=== PATIENT | male | born 1975 | race Two or more races ===

== ENCOUNTER 2025-01-20 16:18 | Emergency (ER) | payer BC, SELFPAY ==
[2025-01-20 16:47] VITALS: BP 132/81; PULSE 108; RESP 18; TEMP 36.1; O2SAT 95; BMI 31.9
--- NOTE | 2025-01-20 16:49 | ED.GENADULT ---
HPI - General Adult General Chief complaint: Upper Respiratory Symptoms Stated complaint: sore throat, stuff coming out of eye Time Seen by Provider: 01/20/25 18:00 Source: patient Mode of arrival: ambulatory Limitations: no limitations History of Present Illness ED Provider: Dr. Mary Price HPI narrative: Patient comes to the emergency room complaining of 2-3 days of sore throat, productive cough, body aches, chills. However, what bothers most the patient today are his eyes. Patient states that his eyes have been erythematous, burning and in the morning he wakes up with very crusty eyes and throughout the day he has been using continuously compresses and wipes to clean his eyes. Related Data Previous Rx's ?Medication ?Instructions ?Recorded benzonatate 100 mg capsule 100 mg PO TID PRN cough #14 caps 01/20/25 erythromycin 5 mg/gram (0.5 %) eye 0.5 inch ophthalmic (eye) BID #3.5 01/20/25 ointment grams ibuprofen 600 mg tablet 600 mg PO TID PRN fever or pain 01/20/25 #30 tabs Allergies Allergy/AdvReac Type Severity Reaction Status Date / Time No Known Allergies Allergy Verified 01/20/25 16:48 Review of Systems Review of Systems: Constitutional : No Weight loss, complaining of chills, fatigue and generalized malaise ENT/Mouth : No Hearing loss, No Ear Pain, No Nasal Congestion, No Sinus Pain, No Hoarseness, No sore throat, No Rhinorrhea, No Swallowing Difficulty Eyes: No Eye Pain, No Swelling, bilateral erythema in the sclera, waking up with crusty sticky eyes Cardiovascular : No Chest Pain, No SOB, No Dyspnea on Exertion, No Orthopnea, No Edema, No Palpitations Respiratory : Complaining of productive cough No Wheezing, No Smoke Exposure, No Dyspnea Gastrointestinal : No Nausea, No Vomiting, No Diarrhea, No Constipation, No abdominal Pain, No Hematochezia, No Melena Genitourinary : no irregular bleeding, No Dysuria, No Urinary Frequency, No Hematuria, No Urinary Incontinence, No Urgency, No Flank Pain, No Urinary Flow Changes, No Hesitancy Musculoskeletal : No joint pain, No Myalgias, No Joint Swelling Skin : No Skin Lesions, No rash Neuro : No Weakness, No Numbness, No Paresthesias, No Loss of Consciousness, No Dizziness, No Headache Psych : No Anxiety/Panic, No Depression, No SI/HI/AH/VH, No Social Issues, Heme/Lymph: No Bruising, No Bleeding,No Lymphadenopathy Endocrine : No Polyuria, No Polydipsia, No Temperature Intolerance [facility] Social History Social History Advance Directives: No Advance Directives Information Provided: Yes Physical Exam ED Exam Exam: Appearance: Alert. Oriented X3. No acute distress. Eyes: Pupils equal, round and reactive to light. ENT: Pharynx normal. Injected conjunctiva, sclerae erythematous, crusty discharge in the edges of the eyes, sounds congested Neck: Normal inspection. Neck supple. No lymph nodes noted. No crepitus CVS: Normal heart rate and rhythm. Pulses normal. Normal S1 and S2 Respiratory: No respiratory distress. Breath sounds normal. No Wheezing. No rales Abdomen: Soft and nontender. No rigidity. No distention. Skin: Skin warm and dry. Normal skin color. Normal skin turgor. Extremities: No lower extremity edema. No Lacerations. No Rash Neuro: Oriented X 3. No motor deficit. No sensory deficit. Moving all extremities. No slurred speech. CN 2 through 12 grossly intact Psych: calm, cooperative, normal affect Vital Signs: Vital Signs - 24 hr 01/20/25 16:47 Temperature 96.9 F Pulse Rate 108 H Respiratory Rate 18 Blood Pressure 132/81 Pulse Oximetry 95 Oxygen Delivery Method Room Air BMI result Body Mass Index 31.9 Course Course Course Narrative: This is a Rapid Medical Examination (RME) performed by Jayden Santana PA-C in triage. Full HPI, ROS, assessment and treatment plan per primary provider in the Main ED. Hx: 49 yo M here for eval of sore throat, productive cough x2 days. Plan: viral/strep swabs Medical Decision Making Medical Decision Making [facility] Narrative: My interpretation of labs: Patient tested negative for COVID influenza and strep For patient's symptoms, he was given p.o. Decadron and Tessalon Perles. I discussed the above-mentioned with the patient, patient agrees with plan. Differential Diagnosis Differential Diagnoses: The differential diagnosis associated with the presentation includes (COVID, influenza, strep pharyngitis, viral pharyngitis, viral URI, bronchitis) Lab Data [facility] Lab Attestation statement: I reviewed the patient's lab results. Labs: Lab Results 01/20/25 Range/Units 16:57 COVID-19 (LE) Negative (Negative) COVID-19 Clin Com See Note Influenza Type A (BRENNAN) Negative (Negative) Influenza Type B (BRENNAN) Negative (Negative) Influenza A & B Note See Note S. pyogenes GrpA BRENNAN Negative (Negative) Discharge Plan Discharge Clinical Impression: Viral URI with cough, Conjunctivitis Patient Disposition: Home, Self-Care Instructions: Upper Respiratory Infection (ED), Conjunctivitis (ED) Additional Instructions: Please follow-up with your primary care physician tomorrow. If you have any worsening or new symptoms, please return to the emergency room or call 911 Prescriptions: New benzonatate 100 mg capsule 100 mg PO TID PRN (Reason: cough) Qty: 14 0RF erythromycin 5 mg/gram (0.5 %) ointment 0.5 inch ophthalmic (eye) BID Qty: 3.5 0RF ibuprofen 600 mg tablet 600 mg PO TID PRN (Reason: fever or pain) Qty: 30 0RF Print Language: Sinhala
[2025-01-20 17:18] LABS: IDNOW Serial# 6674DD1D; Strep A Nucleic Acid Negative (Negative)
[2025-01-20 17:27] LABS: COVID-19 Test Negative (Negative); IDNOW Serial# 152EDE1D; IDNOW Serial# 16C4AD1C; Influenza B2 Negative (Negative)
--- OUTSIDE RECORDS SUMMARY | 2025-01-20 18:28 | XMS_ITS | Clinical Summary ---
Author Organization [facility] Address [address] [place] [address] Care Team Providers Care Car Mover Name Role Phone Yovany Holly DO Primary Care Provider [phone] Yovany Holly DO Unavailable Medications atorvaSTATin (LIPITOR) 80 MG tablet Take by mouth. 12/05/2023 Active JARDIANCE 10 mg Tab tablet Take by mouth. 12/05/2023 Active naproxen sodium (ANAPROX) 550 MG tablet Take by mouth. 11/22/2023 Active traMADoL (ULTRAM) 50 mg tablet Take by mouth. 12/05/2023 Active Active Problems Problem Noted Date Diagnosed Date Internal derangement of knee 12/22/2023 Primary osteoarthritis of left knee 12/22/2023 Tear of medial meniscus of left knee, current Social History Tobacco Use Types Packs/Day Years Used Date Smoking Tobacco: Never Assessed Sex and Gender Information Value Date Recorded Sex Assigned at Male 11/08/2023 10:42 AM EDT Legal Sex Male 10:26 AM EDT Gender Identity Male 11/08/2023 10:42 AM EDT Sexual Orientation Not on file Plan of Treatment Health Maintenance Due Date Last Done Comments Blood Pressure 1977 Lipid Panel 1977 PSA 1977 Prostate Cancer Screening 1977 SDM 1977 Depression Screening 1981 Hepatitis C Screening 08/26/1995 DTaP,Tdap,and Td Vaccines (1 - Tdap) 1996 CT Colonography 2022 Colonoscopy 2022 Colorectal Cancer Screening 2022 FIT 2022 FOBT 2022 Multitarget Stool DNA (Cologuard) 2022 Sigmoidoscopy 2022 COVID-19 Vaccine ( - 2023-2 5 season) 2023 Influenza Vaccine (#1) 2024 Meningococcal B Vaccines Aged Out No longer eligible based on patient's age to complete this topic Meningococcal Vaccines Aged Out No lo nger eligible based on patient's age to complete this topic Pneumococcal Vaccine: Pediat rics (0 to 5 Years) and At-Risk Patients (6 to 64 Years) Aged Out No longer eligible b ased on patient's age to complete this topic Insurance Care Teams Car Mover Relationship Specialty Start Date End Date Yovany Holly DO [address] [place] [address] PCP - General Internal Medicine 11/08/23 Yovany Holly DO [address] [place] [address] PCP - Insurance Assigned PCP 11/08/23
--- OUTSIDE RECORDS SUMMARY | 2025-01-20 18:28 | XMS_ITS | Encounter Summary ---
Author Organization [facility] Address [address] [address] Phone Care Team Providers Care Grain Combiner Name Role Phone Meliton Adame MD Primary Care Provider [phone] Meliton Adame MD Unavailable [phone] Meliton Adame MD Unavailable [phone] Lu Montes De Oca MD Unavailable [phone] Sandra Wells CNP Primary Care Provider + Encounter Details Date Type Department Care Team (Late st Contact Info) Description 01/21/2022 Procedure Pass [facility]PT [address] [facility], [address]th [place] [address] Social History Tobacco Use Types Packs/Day Years Used Date Smoking Tobacco: Every Day Cigarettes 1 29.3 Started: 10/01/1995 Smokeless Tobacco: Never Alcohol Use Standard Drinks/Week Comments Not Currently 12 (1 standard drink = 0.6 oz pu re alcohol) once a week Sex and Gender Information Value Date Recorded Sex Assigned at Male 07/14/2021 6:33 AM EDT Legal Sex Male 7:47 PM EST Gender Identity Male 07/14/2021 6:33 AM EDT Sexual Orientation Straight 07/14/2021 6: 33 AM EDT documented as of this encounter Plan of Treatment Not on file documented as of this encounter Visit Diagnoses Not on filedocumented in this encounter Additional Health Concerns Assessment Noted Time PHQ-2 Depression Total Score: 0 09/22/19 12:48 PM EDT documented as of this encounter Care Teams Grain Combiner Relationship Specialty Start Date End Date Meliton Adame MD [address] [place] [address] [email or web address] PCP - General Internal Medicine 07/15/20 05/08/23 Lu Montes De Oca MD [address] [facility] [place] [address] [email or web address] PCP - Resident PCP Internal Medicine 01/27/23 05/08/23 Sandra Wells CNP [address] [address] [place] [address] [email or web address] PCP - General Nurse Practitioner 05/09/23 10/09/23 Meliton Adame MD [address] [place] [address] [email or web address] Insurance Assigned Provider 10/04/20 08/05/23 Meliton Adame MD [address] [place] [address] [email or web address] Attributed Provider 11/07/20 09/08/23 documented as of this encounter Additional Source Comments The information contained in this document represents components of the legal health record. It is not the complete legal health record.[facility]
--- OUTSIDE RECORDS SUMMARY | 2025-01-20 18:28 | XMS_ITS | Encounter Summary ---
Author Organization [facility] Address [address] [facility] [address] [place] [address] Phone Care Team Providers Care Retail Shift Manager Name Role Phone Meliton Adame MD Primary Care Provider Meliton Adame MD Unavailable [phone] Meliton Adame MD Unavailable [phone] Lu Montes De Oca MD Unavailable Sandra Wells MILLING OPERATOR Primary Care Provider + Encounter Details Date Type Department Care Team (Late st Contact Info) Description 06/29/2021 Procedure Pass MRI, [facility] [place] [address] [place] [address] Social History Tobacco Use Types Packs/Day Years [...] Noted Time PHQ-2 Depression Total Score: 0 09/30/19 1:36 PM EDT documented as of this encounter Care Teams Retail Shift Manager Relationship Specialty Start Date End Date Meliton Adame MD [address] [place] [address] [email or web address] PCP - General Internal Medicine 07/15/20 05/08/23 Lu Montes De Oca MD [address] [facility] [place] [address] [email or web address] PCP - Resident PCP Internal Medicine 01/27/23 05/08/23 Sandra Wells CNP [address] [address] [place] [address] [email or web address] PCP - General Nurse Practitioner 05/09/23 10/09/23 Meliton Adame MD [address] [place] [address] [email or web address] Insurance Assigned Provider 10/04/20 08/05/23 Meliton Adame MD [address] [place] [address] [email or web address] Attributed Provider 11/07/20 09/08/23 documented as of this encounter Additional Source Comments The information contained in this document represents components of the legal health record. It is not the complete legal health record.[facility]
--- OUTSIDE RECORDS SUMMARY | 2025-01-20 18:28 | XMS_ITS | Encounter Summary ---
Author Organization [facility] Address [address] [place] [address] Phone Care Team Providers Care Owner Professional Engineer Name Role Phone Meliton Adame MD Primary Care Provider Meliton Adame MD Unavailable [phone] Meliton Adame MD Unavailable [phone] Lu Montes De Oca MD Unavailable Sandra Wells CNP Primary Care Provider + Encounter Details Date Type Department Care Team (Latest Contact Info) Description 10/10/2020 Ancillary Orders [facility] [address], [address] [place] [address] Yfn Figueroa MBBS [address] [place] [id number] [email or web address] Chronic venous insufficiency Social History Tobacco Use Types Packs/Day Years [...] documented as of this encounter Visit Diagnoses Diagnosis Chronic venous insufficiency Unspecified venous (peripheral) insufficiency documented in this encounter Additional Health Concerns Assessment Noted Time PHQ-2 Depression Total Score: 0 09/30/19 1:36 PM EDT documented as of this encounter Care Teams Owner Professional Engineer Relationship Specialty Start Date End Date Meliton Adame MD [address] [place] [address] [email or web address] PCP - General Internal Medicine 07/15/20 05/08/23 Lu Montes De Oca MD [address] [facility] [place] [address] [email or web address] PCP - Resident PCP Internal Medicine 01/27/23 05/08/23 Sandra Wells CNP [address] [address] [place] [address] [email or web address] PCP - General Nurse Practitioner 05/09/23 10/09/23 Meliton Adame MD [address] [place] [address] [email or web address] Insurance Assigned Provider 10/04/20 08/05/23 Meliton Adame MD [address] [place] [address] [email or web address] Partners Attributed Provider 11/07/20 09/08/23 documented as of this encounter Additional Source Comments The information contained in this document represents components of the legal health record. It is not the complete legal health record.[facility]
--- OUTSIDE RECORDS SUMMARY | 2025-01-20 18:28 | XMS_ITS | Clinical Summary ---
Author Organization [facility] Address [address] [address] Phone Care Team Providers Care Maintenance Fitter Name Role Phone Unavailable Primary Care Provider Unavailabl e Allergies No known active allergies Medications terbinafine HCL (LAMISIL) 250 mg tablet Take 1 tablet (250 mg total) by mouth daily. 30 tablet 3 07/20/2022 Active atorvastatin (LIPITOR) 80 MG tabletIndication s:Coronary artery disease involving [place] heart without angina pectoris, unspecified vessel or lesion type Take 1 tablet (80 mg total) by mouth daily. 90 tablet 3 07/20/2022 Active aspirin 81 MG EC tablet Take 1 tablet (81 mg total) by mouth daily. 90 tablet 3 07/20/2022 Active sildenafiL (VIAGRA) 100 mg tablet TAKE 0.25 TABLETS (25 MG TOTAL) BY MOUTH DAILY NEEDED. 30 tablet 10/12/2022 Active naproxen (NAPROSYN) 250 MG tabletIndication s:Backache TAKE 1 TABLET (250 MG TOTAL) BY MOUTH 2 (TWO) TIMES A DAY WITH MEALS. 60 tablet 10/12/2022 Active cyclobenzaprine (FLEXERIL) 10 MG tablet TAKE 1 TABLET (10 MG TOTAL) BY MOUTH 3 (THREE) TIMES A DAY NEEDED. 45 tablet 10/12/2022 Active Active Problems Problem Noted Date Diagnosed Date Plantar fasciitis, right 07/20/2022 Assessment & Plan (07/21/2022 3:30 AM EDT): He has pain of the right heel worse in the morning when he steps sharp in quality. Appears to be consistent with plantar fasciitis. I provided him a handout with conservative management and exercises for plantar fasciitis Urinary urgency 09/24/2021 Assessment & Plan (07/21/2022 3:30 AM EDT): He has intermittent episodes of urinary urgency. No bleeding or dysuria. Seems overall stable. Continue to monitor. Assessment & Plan (09/25/2021 2:41 AM EDT): He notes increase your urgency during the day. No issues with incomplete voiding or incontinence. 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 He was seen by orthopedic surgery who prescribed him Medrol dosepack. This helped improve symptoms. He is unable to do Physical therapy because of his work schedule. He is interested in repeating a Medrol dosepack as well as weight loss. Referral to [facility]. Restart Medrol dose pack. Assessment & Plan (06/30/2021 10:15 AM EST): He has had intermittent chronic pain of the left side lower back since about 2014, this is steadily increased in both frequency and severity. Over the past three or four months, it is worse into the point where it's present consistently. Pain is located in the left-sided upper lumbar paraspinal muscles and radiates down to behind the left thigh down to the knee. No radiation down to the feet, bilaterally. There is no saddle anesthesia and no urinary incontinence symptoms. On exam, has some tenders to palpation as well as spasm of the left paraspinal muscles. Obtain Xray of lumbar spine today. Will also order MRI of lumbar spine, given his symptoms. Refer to physical therapy, physical medicine, and rehabilitation for further evaluation. He will also use ibuprofen 800 mg as needed for pain management. Assessment & Plan (02/04/2021 6:31 AM EDT): He uses ibuprofen with mild to moderate efficacy. Trial of Flexeril 5 mg at night as needed for pain. Coronary artery disease invo lving [place] heart without angina pectoris 09/30/2020 Assessment & Plan (07/21/2022 3:29 AM EDT): He's on atorvastatin 80 mg and aspirin and tolerating this well. Continue current regimen. Refills provided for atorvastatin (LIPITOR) 80 MG tablet Dispense: 90 tablet; Refill: 3 Assessment & Plan (09/25/2021 2:40 AM EDT): Continue atorvastatin (LIPITOR) 80 mg tablet Ordered Hemoglobin A1c and CBC and differential Assessment & Plan (02/04/2021 6:32 AM EDT): He is on atorvatstain 80 mg daily and tolerating this well. He is working on lifestyle changes. Continue to monitor. Assessment & Plan (09/30/2020 11:56 PM EDT): He had a CT angiogram done in June that showed overall small amount of noncalcified plaque in the coronary arteries; mild 25-49% stenosis of D1 and minimal 1-20% stenosis of the proximal LAD. He is working on preventative therapy. He is on atorvastatin 80 mg daily and is tolerating this well. We are trying to increase atorvastatin and his exercise. Continue with cardiac preventative care. Former smoker 09/30/2020 Assessment & Plan (07/21/2022 3:30 AM EDT): He is a former smoker. He quit about three and a half months ago, feeling well. Congratulated him on smoking cessation. Will continue to monitor. Assessment & Plan (02/04/2021 6:32 AM EDT): He is down to one pack per day. Uses nicotine patch and nicotine gum. Continue to monitor. Assessment & Plan (09/30/2020 11:56 PM EDT): He smokes about a pack per day. He has been doing so since 20 years of age. He is interested in quitting smoking. Started nicotine patches with gradual taper. Provided nicotine lozenges to help with cravings. Varicose veins of left lower extremity with pain 07/06/2020 Assessment & Plan (02/04/2021 6:31 AM EDT): He uses a compression stocking with good efficacy. Continue compression stockings. Assessment & Plan (09/30/2020 11:56 PM EDT): Reports varicose veins of the left lower extremity with pain. He was seen at the [facility] ED earlier this year in the setting of worsening venous insufficiency, swelling and pain. He had a venous ultrasound that was negative. He had a CT angiogram which showed some mild stenosis of the coronary arteries. He has been using OTC compression stockings with good efficacy, reducing the pain and swelling in the area. Referred to Vascular Medicine for further evaluation. Class 2 severe obesity due t o excess calories with serious comorbidity and body mass index (BMI) of 39.0 to 39.9 in adult 07/15/2009 Assessment & Plan (07/21/2022 3:30 AM EDT): BMI of 39.2 today is interested in weight loss, given his history of coronary artery disease. We will refer to the [facility] for further evaluation. Assessment & Plan (09/25/2021 2:41 AM EDT): Interested in weight loss Referral to the [facility]. Lactose intolerance 07/15/2009 Family history of diabetes mellitus (DM) 010 Onychomycosis 07/15/2009 Assessment & Plan (07/21/2022 3:30 AM EDT): He has some onychomycosis of the bilateral big toes. He's interested in trying terbinafine HCL. Prescribed terbinafine HCL (LAMISIL) 250 mg tablet, daily for 12 weeks. Assessment & Plan (02/04/2021 6:31 AM EDT): Completed a 3-month course of terbinafine with good efficacy. Nails are now completely back to normal and toenails have improved significantly. Continue to monitor. Continue Tinactin use for tinea pedis. Assessment & Plan (09/30/2020 11:56 PM EDT): He has onychomycosis of his hands and feet. He was previously treated with terbinafine with good efficacy. Started terbinafine 250 mg daily for 12 weeks. Obtain comprehensive metabolic panel today. Immunizations Immunization Administration Dates Next Due DTaP 04/16/2003 Tdap 01/31/2017,01/26/2011,07/15/2009 Family History Medical History Relation Comments Coronary artery disease Father Early CAD Father Diabetes Mother Lung cancer Paternal Aunt Cancer Son Relation Status Comments Father Mother Paternal Aunt Son Social History Tobacco Use Types Packs/Day Years Used Date Smoking Tobacco: Former Cigarettes 1 26.6 0 10/01/1995 - 05/01/2022 Smokeless Tobacco: Never Alcohol Use Standard Drinks/Week Comments Yes 12 (1 standard drink = 0.6 oz pu re alcohol) once a week Education Answer Date Recorded Are you interested in more education? Not on mera e 2022 Are you concerned about learning? Not on file 2022 No 2022 No 2022 Digital Access Answer Date Recorded No 09/24/2022 No 09/24/2022 No 09/24/2022 Reliable internet access at home? Not on file 09/24/2022 Device with a working camera? Not on file Sex and Gender Information Value Date Recorded Sex Assigned at Male 07/14/2021 6:33 AM EDT Legal Sex Male 7:47 PM EST Gender Identity Male 07/14/2021 6:33 AM EDT Sexual Orientation Straight 07/14/2021 6: 33 AM EDT Last Filed Vital Signs Vital Sign Reading Time Taken Comments Blood Pressure 130/86 07/20/2022 1:44 PM EDT Pulse 94 07/20/2022 1:44 PM EDT Temperature 35.9 C (96.6 F) 07/20/2022 1:44 PM EDT Respiratory Rate 18 04/04/2022 6:16 PM EST Oxygen Saturation 98% 07/20/2022 1:44 PM EDT Inhaled Oxygen Concentration - - Weight 135 kg (297 lb 9.6 oz) 07/20/2022 1:44 PM EDT Height 185.4 cm (6' 1 ) 07/16/2021 10:18 AM EDT Body Mass Index 39.26 07/16/2021 10:18 AM EDT Plan of Treatment Health Maintenance Due Date Last Done Comments SMOKING Hx and SMOKELESS TOBACCO SCREENING 1990 COLOGUARD 2022 COLONOSCOPY 2022 COLORECTAL CANCER SCREENING 2022 FIT TEST 2022 FOBT 2022 SIGMOIDOSCOPY 2022 VIRTUAL COLONOSCOPY 2022 DEPRESSION SCREENING 09/21/2022 09/21/2021 SCREENING FOR DIABETES 10/01/2023 , 07/15/2020, 07/22/2009 INFLUENZA VACCINE (#1) 2024 COVID-19 VACCINE ( - 2023-2 5 season) 2024 Adult Td,Tdap Booster 01/31/2027 01/31/2017 , 01/26/2011, 07/15/2009 HEPATITIS C SCREENING Completed 09/30/2020 , 09/30/2020 HIV ONE-TIME SCREENING (18-6 5 YEARS) Completed 09/30/2020 HEPATITIS A VACCINES Aged Out No long er eligible based on patient's age to complete this topic HIB VACCINES Aged Out No longer eligi ble based on patient's age to complete this topic MENINGOCOCCAL VACCINES (ACWY) Aged Out No longer eligible based on patient's age to complete this topic MENINGOCOCCAL VACCINES (B) Aged Out N o longer eligible based on patient's age to complete this topic PNEUMOCOCCAL VACCINES (0-49 years) Aged Out No longer eligible b ased on patient's age to complete this topic Medical Devices Not on file Procedures Procedure Name Priority Date/Time Associated Diagnosis Comments HEPATITIS C ANTIBODY, QUALITATIVE Routine 09/30/2020 2:31 PM EDT Routine general medical examination at a health care facility from Last 3 Months or Most Recently Relevant to Health Maintenance Results * Hepatitis C antibody, qualitative (09/30/2020 2:31 PM EDT) HCV ANTIBODY Negative Negative [facility] Comment:Antibodies to HCV no t detected. Does not exclude the possibility of exposure to HCV. 09/30/2020 2:31 PM EDT 09/30/2020 2:37 PM EDT Meliton Adame MD LAB BLOOD ORDERABLES Final Re sult [facility] [address] [place] [address] from Last 3 Months or Most Recently Relevant to Health Maintenance [facility] Additional Source Comments The information contained in this document represents components of the legal health record. It is not the complete legal health record.[facility]
--- OUTSIDE RECORDS SUMMARY | 2025-01-20 18:28 | XMS_ITS | Encounter Summary ---
Author Organization [facility] Address [address] [address] Phone Care Team Providers Care Car Ferrier Name Role Phone Meliton Adame MD Primary Care Provider Meliton Adame MD Unavailable [phone] Meliton Adame MD Unavailable [phone] Lu Montes De Oca MD Unavailable Sandra Wells [facility] Primary Care Provider + Encounter Details Date Type Department Care Team (Late st Contact Info) Description 07/15/2020 Transcribe Orders [facility] EKG [address] [place] [address] Meliton Adame MD [address] [place] [address] Social History Tobacco Use Types Packs/Day Years Used Date Smoking Tobacco: Every Day Cigarettes Smokeless Tobacco: Never Alcohol Use Standard Drinks/Week Comments Yes 0 (1 standard drink = 0.6 oz pur e alcohol) once a week Sex and Gender [...] Noted Time PHQ-2 Depression Total Score: 0 07/16/19 21 2:21 PM EDT documented as of this encounter Care Teams Car Ferrier Relationship Specialty Start Date End Date Meliton Adame MD [address] [place] [address] [email or web address] PCP - General Internal Medicine 07/15/20 05/08/23 Lu Montes De Oca MD [address] [facility] [place] [address] [email or web address] PCP - Resident PCP Internal Medicine 01/27/23 05/08/23 Sandra Wells CNP [address] [address] [place] [address] [email or web address] PCP - General Nurse Practitioner 05/09/23 10/09/23 Meliton Adame MD [address] [place] [address] [email or web address] Insurance Assigned Provider 10/04/20 08/05/23 Meliton Adame MD [address] [place] [address] [email or web address] Attributed Provider 11/07/20 09/08/23 documented as of this encounter Additional Source Comments The information contained in this document represents components of the legal health record. It is not the complete legal health record.[facility]
--- OUTSIDE RECORDS SUMMARY | 2025-01-20 18:28 | XMS_ITS | Clinical Summary ---
Author Organization [facility] Address [address] [place] [address] Care Team Providers Care Change Person Name Role Phone Meliton Adame MD Primary Care Provider Yovany Miller MD Unavailable [phone] Allergies No known active allergies Medications * This document contains information received from the source organization and may not represent a complete record from that organization. aspirin 81 MG EC tablet Take 81 mg by mouth 09/24/2021 Active atorvastatin (LIPITOR) 80 MG tablet Take 80 mg by mouth 09/24/2021 Active Active Problems No known active problems Immunizations Immunization Administration Dates Next Due DTaP age 2 MO to <7 Yrs 04/16/2003 Tdap 01/31/2017,01/26/2011 Social History Tobacco Use Types Packs/Day Years Used Date Smoking Tobacco: Every Day Cigarettes 1 20 Smokeless Tobacco: Current Alcohol Use Standard Drinks/Week Comments Yes 24 (1 standard drink = 0.6 oz pu re alcohol) weekends Sex and Gender Information Value Date Recorded Sex Assigned at Not on file Legal Sex Male 4:44 PM EDT Gender Identity Male 11/18/2023 4:09 PM EDT Sexual Orientation Straight 11/18/2023 4: 09 PM EDT Last Filed Vital Signs Vital Sign Reading Time Taken Comments Blood Pressure 124/77 09/25/2024 11:23 AM EDT Pulse 104 09/25/2024 11:20 AM EDT Temperature 36.2 C (97.2 F) 09/25/2024 11:23 AM EDT Respiratory Rate 18 09/25/2024 11:20 AM EDT Oxygen Saturation 95% 09/25/2024 11:20 AM EDT Inhaled Oxygen Concentration - - Weight 126.1 kg (278 lb) 03/27/2024 9:13 AM EST Height - - Body Mass Index - - Plan of Treatment Not on file Insurance [facility] Care Teams Change Person Relationship Specialty Start Date End Date Meliton Adame MD PCP - General 10/20/21 Yovany Holly MD [address] [place] [address] PCP - Insurance PCP 11/18/23
--- OUTSIDE RECORDS SUMMARY | 2025-01-20 18:28 | XMS_ITS | Encounter Summary ---
Author Organization [facility] Address [address] [place] [phone] Phone Care Team Providers Care Counter Dish Carrier Name Role Phone Unknown, Unknown Primary Care Provider Meliton Samaniego MD Primary Care Provider [phone] Meliton Adame MD Unavailable [phone] Meliton Adame MD Unavailable [phone] Lu Montes De Oca MD Unavailable [phone] Sandra Wells [facility]R[facility] Primary Care Provider + Encounter Details Date Type Department Care Team (Late st Contact Info) Description 07/06/2020 Procedure [facility] [address] [place] [address] Social History Tobacco Use Types Packs/Day Years [...] AM EDT documented as of this encounter Functional Status * Calculated C-SSRS Risk Score (Lifetime/Recent) Answer Date of Assessment Author No Risk Indicated 07/06/2020 12:36 PM EST Bonnie Manuel RN * [place] Suicide Severity Rating Scale (Screener/Recent Self-Report) Question Answer Date of Assessment Author 1. Wish to be (Past 1 Month) No 021 12:36 PM Bonnie Ho RN 2. Non-Specific Active Suici santiago Thoughts (Past 1 Month) No 07/06/2020 12:36 PM Bonnie Ho RN 6. Suicidal Behavior (Lifetime) No 12:36 PM Bonnie Ho RN documented as of this encounter Plan of Treatment Not on file documented as of this encounter Visit Diagnoses Not on filedocumented in this encounter Care Teams Counter Dish Carrier Relationship Specialty Start Date End Date Unknown, Unknown, MD PCP - General 07/06/20 07/14/20 Meliton Adame MD [address] [place] [address] [email or web address] PCP - General Internal Medicine 07/15/20 05/08/23 Lu Montes De Oca MD [address] [place] [address] [email or web address] PCP - Resident PCP Internal Medicine 01/27/23 05/08/23 Sandra Wells CNP [address] [place] [id number] [email or web address] PCP - General Nurse Practitioner 05/09/23 10/09/23 Meliton Adame MD [address] [place] [address] [email or web address] Insurance Assigned Provider 10/04/20 08/05/23 [place] [address] [email or web address] Partners Attributed Provider 11/07/20 09/08/23 documented as of this encounter Additional Source Comments The information contained in this document represents components of the legal health record. It is not the complete legal health record.[facility]
[2025-01-20 19:19] VITALS: BP 132/81; PULSE 108; RESP 18; TEMP 36.1; O2SAT 95
== END 2025-01-20 19:20 | disposition home or self-care (01) ==
PROVIDERS: Physician Assistant Medical; Emergency Provider Emergency Medicine
DX: J02.9 Acute pharyngitis, unspecified (principal); J06.9 Acute upper respiratory infection, unspecified; R05.9 Cough, unspecified; H10.9 Unspecified conjunctivitis
CPT/HCPCS: 87502; 87635; 87651; 99283; 99284; J8540